=== PATIENT | female | born 1985 | race Hispanic/Latino ===

== ENCOUNTER 2018-09-11 13:03 | Outpatient (CLI) | payer BC ==
--- NOTE | 2018-09-11 14:38 | ULT ---
LEFT POSTERIOR NECK SOFT TISSUE ULTRASOUND: 09/11/18 HISTORY: Lump in the neck. TECHNIQUE: Multiplanar bashir scale and color Doppler images were obtained in the left posterior neck ultrasound. FINDINGS: The area of palpable abnormality, there is a well circumscribed hypoechoic lesion measuring 1.5 cm in greatest dimension. This does not demonstrate internal flow and is on the undersurface of the dermis . This may represent a sebaceous cyst. IMPRESSION: Lesion in the left posterior neck may represent a sebaceous cyst. POS: PATSY
== END 2018-09-11 13:04 | disposition home or self-care (01) ==
LOC: BICULT 13:03
PROVIDERS: ATTEND Family Medicine
DX: R22.1 Localized swelling, mass and lump, neck (principal)
CPT/HCPCS: 76536